=== PATIENT | female | born 1995 | race Caucasian/White ===

== ENCOUNTER 2017-04-02 19:47 | Observation (INO) | payer OTHER ==
[2015-08-05 14:27] VITALS: BP 121/64
[2017-04-02 20:32] LABS: Urine Bilirubin Negative (NEGATIVE); Urine Ketone Negative (NEGATIVE); Urine Nitrite Negative (NEGATIVE); Urine Protein Negative (NEGATIVE); Urine Specific Gravity <=1.005 SP.GR. (1.005-1.010); Urine Urobilinogen Normal (NORMAL)
[2017-04-02 20:34] LABS: Urine Appearance Clear; Urine Bacteria 2+; Urine Blood 5 /ul (NEGATIVE); Urine Color Colorless; Urine RBC None Seen /hpf (0-5); Urine WBC 0-5 /hpf (0-5)
[2017-04-02] MEDS ORDERED: RINGER'S SOLUTION,LACTATED 1,000 ML IV PRN (21:01)
[2017-04-02] MEDS ORDERED: BETAMETH ACET/BETAMET SOD PHOS 6 MG/ML VIAL IM ONE (21:37)
== END 2017-04-02 21:50 | disposition short-term general hospital (02) ==
LOC: OBCLINIC 19:47 → OB 21:00 → INTOOBSV 21:00
PROVIDERS: ADMIT Obstetrics & Gynecology Gynecologic Oncology; ATTEND Obstetrics & Gynecology Gynecologic Oncology
DX: O42.913 Preterm premature rupture of membranes, unspecified as to length of time between rupture and onset of labor, third trimester (principal); O99.02 Anemia complicating childbirth; O99.113 Other diseases of the blood and blood-forming organs and certain disorders involving the immune mechanism complicating pregnancy, third trimester; F31.9 Bipolar disorder, unspecified
CPT/HCPCS: 59025; 81001; 96372; 96374; G0378; G0379

== ENCOUNTER 2019-02-09 02:40 | Observation (INO) ==
[2019-02-09] MEDS ORDERED: PIPERACILLIN SODIUM/TAZOBACTAM 3.375 GM in DEXTROSE 5 % IN WATER 100 ML IV ONE ×2 (02:58)
--- NOTE | 2019-02-09 03:04 | ERNOTE ---
Lower Extremity HPI - Narrative Date of Service: 02/09/19 - General Lower Extremities Pain: foot: right Time Seen by Provider: 02/09/19 02:42 Source: patient - Immun/Allergies/Home Medications Immunizations: IMMUNIZATION HX Immunizations Up to Date Yes History of Influenza Vaccine Yes Hx Pneumococcal Vaccination No Allergies/Adverse Reactions: Allergies Allergy/AdvReac Type Severity Reaction Status Date / Time No Known Allergies Allergy Verified 02/09/19 02:47 Home Medications: HOME MEDICATIONS Etonogestrel [Nexplanon] 68 mg SQ [id number] 01/27/19 [Last Taken Unknown] Ibuprofen [Motrin] 600 mg PO Q6H PRN #40 tab 01/27/19 [Last Taken Unknown] Clindamycin HCl [Cleocin HCl] 300 mg PO QID 10 Days #40 cap 02/07/19 [Last Taken Unknown] - History of Present Illness Narrative: This is a 23-year-old female who comes to the emergency department at 3:00 in the morning with right foot pain. The patient reports that she works for [employer], and 3 days ago she was walking around in her tennis shoes when she stepped on a nail. The nail penetrated through the shoe and into the bottom of her foot near the metatarsal involving the fourth digit. The patient finished her work shift went home got some sleep in the next morning when she woke up it was swollen and red. She came to the hospital had an x-ray and was diagnosed with foot cellulitis. She was started on clindamycin. The patient reports that this was marked as the edge of the erythema and she was told if it got worse to come to the hospital again. The redness is gotten worse and the pain is getting worse. She says that even gentle touch such as water from the shower will cause a severe burning sensation. She was not going to come to the hospital however 1 of her friends is here being seen for an unrelated condition and her other friends told her that she had to be seen. Patient denies any fever. She has been drinking says last drink was 2-1/2 hours ago. Denies other complaints Review of Systems - Review of Systems Constitutional: Present: no symptoms reported EYE: Present: no symptoms reported ENT: Present: no symptoms reported Respiratory: Present: no symptoms reported Cardiology: Present: no symptoms reported Gastrointestinal/Abdominal: Present: no symptoms reported Genitourinary: Present: no symptoms reported Musculoskeletal: Present: See HPI Skin: Present: See HPI, other - Erythema of the skin and sensitivity to gentle touch especially dorsum Neurological: Present: no symptoms reported Endocrine: Present: no symptoms reported Hematologic/Lymphatic: Present: no symptoms reported Psych: Present: no symptoms reported Medical History (Updated 02/07/19 @ 11:21 by JONY Garduno) No pertinent past medical history Surgical History: Surgical History (Updated 01/27/19 @ 18:58 by Shannan Boss RN) History of placement of ear tubes Family History: Family History (Last Updated 02/09/19 @ 02:48 by Sandy Barillas) Father CVA (cerebral vascular accident) Aneurysm Social History: Preferred Language Hungarian Smoking Status Current every day smoker Abuse History No History of abuse Psych History Hx of Anxiety,Hx of Bipolar Disorder Alcohol Use occasionally No Social History Section defined Physical Exam - Physical Exam General Appearance: Present: wd/wn, alert, no apparent distress Head Exam: Present: normal inspection, no evidence of injury Eye Exam: Normal inspection: bilateral, PERRL: bilateral Ears, Nose, Throat: Present: normal ENT inspection, normal pharynx Neck: Present: normal inspection, nontender Respiratory: Present: no respiratory distress, chest nontender, lungs clear Cardiovascular/Chest: Present: regular rate, rhythm, no murmur Gastrointestinal/Abdominal: Present: nontender, nondistended, soft Extremity Exam: Present: other - The patient has swelling to the right foot from the hindfoot distally. She has exquisite tenderness involving the entire fourth digit as well as along the distal fourth metatarsal. The skin is warm. There is thickening and fullness near the area of the puncture site on the plantar aspect Neurological Exam: Present: alert, oriented, normal mood/affect, no motor/sensory deficits, other - Cannot really wiggle the fourth toe due to pain Skin Exam: Present: other - Patient has significant redness on the dorsum from the hindfoot anteriorly. Lymphatic Exam: Present: no adenopathy Progress - Results and Orders Patient's Lab Results:: I have reviewed the patient's lab results. - Vital Signs Patient's Vital Signs:: I have reviewed the patient's vital signs. Vital Signs: Vital Signs 02/09/19 02:44 Temperature 36.7 C Pulse Rate 82 Respiratory Rate 18 Blood Pressure 120/68 O2 Sat by Pulse Oximetry 100 - X-Ray X-Ray #1 X-Ray: foot Interpretation: Interp. by me X-ray Comments: 2 views of the right foot do not demonstrate any osseous abnormalities visible. No subcutaneous gas - Progress/Reassessment Chief Complaint: Foot Injury/Pain Plan - Plan Plan: This is a 23-year-old female with a puncture wound through tennis shoe into the foot. She developed cellulitis fairly quickly. Was placed on clindamycin. Is been getting worse slowly since then. There is some thickening in the area of the puncture wound which I am concerned might be a an abscess. Significant tenderness involving the fourth toe. Obviously there is a big concern for Pseudomonas. The antibiotic she was placed on is not good for Pseudomonas coverage. Going to start an IV and give Zosyn. Pain medicine. X-ray labs and patient will need to be admitted for repeat antibiotics. May want to get orthopedics or surgeon to consult. Departure Clinical Impression: Cellulitis of foot - Departure Disposition: Still a patient Condition: Good
[2019-02-09 03:15] LABS: Hematocrit 43.4 % (37.0-47.0); Hemoglobin 14.9 gm/dL (12.5-16.0); Mean Cell Volume 92.5 fl (78-100); Mean Corpuscular Hemoglobin 31.8 pg (27-31); Mean Corpuscular Hgb Conc 34.3 g/dl (32-36); Mean Platelet Volume 10.6 fl (8-12.5); Neutrophil # 6.1 K/mm3 (1.3-6.0); Platelet Count 245 K/mm3 (150-450); Red Blood Count 4.69 M/mm3 (4.2-5.4); Red Cell Distribution Width 12.7 % (11.5-14.0); White Blood Count 10.2 K/mm3 (4.0-10.5)
[2019-02-09] MEDS: MORPHINE SULFATE 4 MG/ML SYRG IV ONE ×2 (03:19→03:28)
[2019-02-09 03:31] LABS: Albumin * 4.1 gm/dl (3.4-5.0); Anion Gap 15.1 mmol/L (6.8-13.8); Bilirubin, Total 0.3 mg/dL (0.0-1.1); CRP 1.6 mg/dL (0.0-0.9); Ca. Corrected For Albumin 8.6 mg/dL (8.4-10.2); Carbon Dioxide 26.6 mmol/L (24-32.6); Potassium 3.7 mmol/L (3.4-4.6); Total Protein 8.6 gm/dL (6.2-8.2)
[2019-02-09] MEDS ORDERED: IBUPROFEN 600 MG TABLET PO ONE (03:56)
[2019-02-09] MEDS ORDERED: NICOTINE 21 MG PATC TD SCH (05:00)
--- NOTE | 2019-02-09 10:28 | HP ---
Chief Complaint - Chief Complaint Date of Service: 02/09/19 Time of Service: 10:28 Chief Complaint: Cellulitis of left fore foot History of Present Illness: 23-year-old female presented to the ER for worsening right foot pain. Patient states she stepped on a nail 3 days prior while working. She went to the ER 2 days ago was diagnosed with cellulitis. She was started on clindamycin which she began the day before coming to the hospital, getting in 2 doses. Patient states that the redness and pain has worsened and so was admitted for failed outpatient antibiotic treatment. Patient was started on Zosyn. Patient today states that she is feeling much better and the tenderness and redness is improving. Forefoot was outlined where cellulitic infection was. Nail penetrated roughly plantar aspect mid fourth metatarsal body. There is some redness around the fourth and fifth digits up in 2 of her forefoot roughly 2 inches both along the dorsal and plantar side of her foot. Patient has no pertinent past history, has not taken any medications routinely. She has no allergies. Medical History (Updated 02/09/19 @ 10:28 by Heath Clancy DO) No pertinent past medical history Surgical History: Surgical History (Updated 02/09/19 @ 10:28 by Heath Clancy DO) History of placement of ear tubes Family History: Family History (Last Reviewed 02/09/19 @ 04:44 by Kinga Coleman RN) Father CVA (cerebral vascular accident) Aneurysm Social History: Patient Lives/Resources Home Utilized Preferred Language Irish Do you have any islam or Yes: atheiest cultural preference? Smoking Status Former smoker Have you smoked in the past 12 Yes months Abuse History No History of abuse Psych History Hx of Anxiety,Hx of Bipolar Disorder Alcohol Use occasionally No Social History Section defined Review Of Systems (GEN) - Review of Systems Generalized/Overall Review: Absent: Chills, Fever EENTM: Present: No Symptoms Reported Respiratory: Present: No Symptoms Reported Cardiac: Present: No Symptoms Reported Abdominal: Present: No Symptoms Reported Genitourinary: Present: No Symptoms Reported Musculoskeletal: Present: No Symptoms Reported Neurological: Present: No Symptoms Reported Skin: Present: Change in Color - Redness around fourth and fifth digit left foot Immunizations: IMMUNIZATION HX Immunizations Up to Date Yes History of Influenza Vaccine Yes Hx Pneumococcal Vaccination No Allergies/Adverse Reactions: Allergies Allergy/AdvReac Type Severity Reaction Status Date / Time No Known Allergies Allergy Verified 02/09/19 04:43 Home Medications: HOME MEDICATIONS Etonogestrel [Nexplanon] 68 mg SQ [id number] 01/27/19 [Last Taken Unknown] Ibuprofen [Motrin] 600 mg PO Q6H PRN #40 tab 01/27/19 [Last Taken Unknown] Clindamycin HCl [Cleocin HCl] 300 mg PO QID 10 Days #40 cap 02/07/19 [Last Taken Unknown] Exam - Exam Vital Signs: Vital Signs - Last Taken Temp 37.1 C 02/09/19 06:33 Pulse 87 02/09/19 06:33 Resp 12 02/09/19 06:33 BP 110/71 02/09/19 06:33 Pulse Ox 97 02/09/19 06:33 Constitutional: Present: Alert, Oriented x3, Cooperative Eye Exam: bilateral eye: normal inspection Neck: Present: full range of motion, supple Respiratory: Present: lungs clear, normal breath sounds Cardiovascular/Chest: Present: normal peripheral pulses, regular rate, rhythm, no murmur Extremity: Present: other - Left distal forefoot pain, fourth and fifth digits and at puncture site. Skin Exam: Present: other - Cellulitic infection left forefoot around fourth and fifth digits moving up into the dorsum and plantar aspect of her foot, outlined Appearance: Present: appropriate appearance, appropriate insight Eye contact: Present: cooperative, good eye contact Thoughts: Present: normal thought pattern, normal mood /affect Diagnostic Studies: Abnormal Lab Results 02/09/19 02/09/19 02/09/19 Range/Units 03:10 03:10 03:10 MCH 31.8 H (27-31) pg Neutrophils # 6.1 H (1.3-6.0) K/mm3 ESR 35 H (0-15) mm/hr Sodium 144 H (132-142) mmol/L Plasma Sodium 144 H (130-142) mmol/L Anion Gap 15.1 H (6.8-13.8) mmol/L C-Reactive Prot, Quant 1.6 H (0.0-0.9) mg/dL Total Protein 8.6 H (6.2-8.2) gm/dL Laboratory Results WBC 10.2 K/mm3 (4.0-10.5) 02/09/19 03:10 RBC 4.69 M/mm3 (4.2-5.4) 02/09/19 03:10 Hgb 14.9 gm/dL (12.5-16.0) 02/09/19 03:10 Hct 43.4 % (37.0-47.0) 02/09/19 03:10 MCV 92.5 fl (78-100) 02/09/19 03:10 MCH 31.8 pg (27-31) H 02/09/19 03:10 MCHC 34.3 g/dl (32-36) 02/09/19 03:10 RDW 12.7 % (11.5-14.0) 02/09/19 03:10 Plt Count 245 K/mm3 (150-450) 02/09/19 03:10 MPV 10.6 fl (8-12.5) 02/09/19 03:10 Immature Gran % (Auto) 0.30 % (0.001-0.429) 02/09/19 03:10 Immature Gran # (Auto) 0.03 K/mm3 (0.000-0.0310) 02/09/19 03:10 60.0 % (42-75.0) 02/09/19 03:10 31.9 % (20-51) 02/09/19 03:10 5.1 % (0.0-9) 02/09/19 03:10 2.3 % (0.0-3.0) 02/09/19 03:10 0.4 % (0.0-1.0) 02/09/19 03:10 Nucleated RBC % 0.0 k/mm3 (0-1) 02/09/19 03:10 6.1 K/mm3 (1.3-6.0) H 02/09/19 03:10 3.25 k/mm3 (1.5-3.5) 02/09/19 03:10 0.5 k/mm3 (0.0-1.0) 02/09/19 03:10 0.2 k/mm3 (0.0-0.7) 02/09/19 03:10 Absolute Basophils 0.0 k/mm3 (0.0-0.1) 02/09/19 03:10 ESR 35 mm/hr (0-15) H 02/09/19 03:10 Sodium 144 mmol/L (132-142) H 02/09/19 03:10 144 mmol/L (130-142) H 02/09/19 03:10 Potassium 3.7 mmol/L (3.4-4.6) 02/09/19 03:10 Chloride 106 mmol/L (97-106) 02/09/19 03:10 Carbon Dioxide 26.6 mmol/L (24-32.6) 02/09/19 03:10 15.1 mmol/L (6.8-13.8) H 02/09/19 03:10 BUN 7 mg/dL (3-23) 02/09/19 03:10 0.78 mg/dL (0.4-1.4) 02/09/19 03:10 Est GFR (Non-Af Amer) 96 mL/min (60-130) D 02/09/19 03:10 9.0 (9.0-21.6) 02/09/19 03:10 92 mg/dL (70-110) 02/09/19 03:10 Calcium 9.0 mg/dL (7.9-10.9) 02/09/19 03:10 Calcium Adj for Albumin 8.6 mg/dL (8.4-10.2) 02/09/19 03:10 0.3 mg/dL (0.0-1.1) 02/09/19 03:10 AST 17 U/L (0-48) 02/09/19 03:10 ALT 21 U/L (19-67) 02/09/19 03:10 131 U/L (50-170) 02/09/19 03:10 C-Reactive Prot, Quant 1.6 mg/dL (0.0-0.9) H 02/09/19 03:10 8.6 gm/dL (6.2-8.2) H 02/09/19 03:10 4.1 gm/dl (3.4-5.0) 02/09/19 03:10 Urine HCG, Qual Negative (NEGATIVE) 02/09/19 03:00 Assessment/Plan - Narrative Narrative: Patient feels well since being brought into the hospital states her pain is much better. Unsure if this is due to the 1 dose of Zosyn she received off the clindamycin and start working. We will stop the Zosyn and start her on Bactrim. Patient adamant that she wants to be discharged home today. Explained to her that this infection will take anywhere from 7 to 10 days to heal completely and to expect some redness and tenderness over the course the next few days but it should begin to improve and improve each day thereafter. Advised patient to follow-up with her PCP within a week to 2 weeks, patient stated understanding to the treatment plan was in agreement with it. - Assessment/Plan (1) Cellulitis of foot Problem: Acute
--- NOTE | 2019-02-09 11:22 | DS ---
(1) Cellulitis of foot Problem: Acute Description of Stay: Patient placed in observation for cellulitic infection due to failed outpatient therapy. Patient had taken 2 doses of clindamycin before coming in. She received 1 dose of Zosyn while here. Patient states that she is feeling better and wants to be discharged home. She is afebrile her vital signs been stable. She has no other pertinent past Max history and takes no chronic medications. She will be discharged home on Bactrim double strength to be taken 1 twice daily for 10 days. Procedures Performed: none Results and Findings: Lab Pending Results 02/09/19 03:00: Urine HCG, Qual Negative 02/09/19 03:10: WBC 10.2, RBC 4.69, Hgb 14.9, Hct 43.4, MCV 92.5, MCH 31.8 H, MCHC 34.3, RDW 12.7, Plt Count 245, MPV 10.6, Immature Gran % (Auto) 0.30, I mmature Gran # (Auto) 0.03, Neutrophils % 60.0, Lymphocytes % 31.9, Monocytes % 5.1, Eosinophils % 2.3, Basophils % 0.4, Nucleated RBC % 0.0, Neutrophils # 6.1 H, Lymphocytes # 3.25, Monocytes # 0.5, Eosinophils # 0.2, Absolute Basophils 0.0 02/09/19 03:10: ESR 35 H 02/09/19 03:10: Sodium 144 H, Plasma Sodium 144 H, Potassium 3.7, Chloride 106, Carbon Dioxide 26.6, Anion Gap 15.1 H, BUN 7, Creatinine 0.78, Est GFR (Non-Af Amer) 96 D, BUN/Creatinine Ratio 9.0, Random Glucose 92, Calcium 9.0, Calcium Adj for Albumin 8.6, Total Bilirubin 0.3, AST 17, ALT 21, Alkaline Phosphatase 131, C-Reactive Prot, Quant 1.6 H, Total Protein 8.6 H, Albumin 4.1 Discharge Location: Home Disposition: Home self-care Condition: Good Discharge Activity: Activity as tolerated Discharge Diet: General/regular food Prescriptions (Any new or edited meds): Sulfamethoxazole/Trimethoprim [Bactrim Ds] 1 tab PO BID #20 tab Complete Home Medications List: Complete Home Medication List: Etonogestrel [Nexplanon] 68 mg SQ [id number] 01/27/19 Ibuprofen [Motrin] 600 mg PO Q6H PRN #40 tab 01/27/19 Sulfamethoxazole/Trimethoprim [Bactrim Ds] 1 tab PO BID #20 tab 02/09/19
[2019-02-09 12:41] VITALS: BP 114/63
== END 2019-02-09 13:10 | disposition home or self-care (01) ==
LOC: MS 02:40 → ER 02:40 → MS 04:45
PROVIDERS: ADMIT Family Medicine; ATTEND Family Medicine
DX: L03.115 Cellulitis of right lower limb
CPT/HCPCS: 36415; 73620; 80053; 84703; 85025; 85652; 86140; 87040; 96365; 99285; G0378